=== PATIENT | male | born 1995 | race Caucasian/White ===

== ENCOUNTER 2024-09-01 22:09 | Emergency (ER) | payer BC, OTHER ==
[~2024-09-01 22:09] MED LIST: Acetaminophen/HYDROcodone 325-5 MG Tab ONE; Ondansetron 4 MG Tab.DIS ONE; Tamsulosin 0.4 MG Cap.ER ONE
[2024-09-01] MEDS ORDERED: Sodium Chloride 0.9% 10 ML Syringe FLUSH PRN (22:38)
[2024-09-01 23:03] LABS: BASOPHILS ABSOLUTE AUTO 0.06 K/uL (0.02-0.10); BASOPHILS PERCENT AUTO 0.5 % (0.0-0.5); EOSINOPHILS ABSOLUTE AUTO 0.21 K/uL (0.04-0.40); EOSINOPHILS PERCENT AUTO 1.6 % (1.0-5.0); HEMATOCRIT 44.3 % (40.0-54.0); HEMOGLOBIN 14.7 g/dL (13.0-18.0); LYMPHOCYTES ABSOLUTE AUTO 2.97 K/uL (1.50-4.00); LYMPHOCYTES PERCENT AUTO 22.7 % (20.0-40.0); MEAN CORPUSCULAR HEMOGLOBIN 26.8 pg (27.0-32.0); MEAN CORPUSCULAR HGB CONC 33.2 g/dL (31.0-35.0); MEAN CORPUSCULAR VOLUME 81 fL (76-96); MEAN PLATELET VOLUME 9.7 fL (6.0-10.0); MONOCYTES PERCENT AUTO 6.1 % (3.0-10.0); NEUTROPHILS ABSOLUTE AUTO 9.06 K/uL (2.00-7.50); NEUTROPHILS PERCENT AUTO 69.1 % (45.0-70.0); PLATELET COUNT,PLT 244 K/uL (150-400); RED BLOOD CELL COUNT 5.49 M/uL (4.50-6.50); RED CELL DISTRIBUTION WIDTH 14.2 % (11.0-16.0); WHITE BLOOD CELL COUNT,WBC 13.1 K/uL (4.0-11.0)
[2024-09-01 23:06] LABS: APPEARANCE,URINE CLEAR (CLEAR); BILIRUBIN,URINE NEGATIVE (NEGATIVE); COLOR,URINE YELLOW; GLUCOSE,URINE 250 mg/dL (NEGATIVE); KETONES,URINE TRACE mg/dL (NEGATIVE); OCCULT BLOOD,URINE NEGATIVE (NEGATIVE); PROTEIN,URINE 30 mg/dL (NEGATIVE)
[2024-09-01 23:07] LABS: LEUKOCYTE ESTERASE,URINE NEGATIVE (NEGATIVE); NITRITE,URINE NEGATIVE (NEGATIVE); RBC,URINE 0-5 /HPF; WBC,URINE NOT SEEN /HPF
[2024-09-01 23:19] LABS: A/G RATIO 0.9 (0.8-2.0); ALBUMIN 3.5 g/dL (3.4-5.0); ANION GAP 14.7 mmol/L (5.0-15.0); BILIRUBIN TOTAL 0.5 mg/dL (0.0-1.0); BUN/CREATININE RATIO 11.4 (6-25); CALCIUM 8.9 mg/dL (8.5-10.1); CARBON DIOXIDE,CO2 26.3 mmol/L (21.0-32.0); CREATININE 1.32 mg/dL (0.70-1.30); EST CRCL DRUG DOSING (CG) 93.32 mL/min; PROTEIN TOTAL,TP 7.6 g/dL (6.4-8.2)
[2024-09-01] MEDS: Sodium Chloride 0.9% 1,000 ML IV ONE (23:20)
[2024-09-02] MEDS ORDERED: Tamsulosin 0.4 MG Cap.ER ONE (00:30)
== END 2024-09-02 00:55 | disposition home or self-care (01) ==
LOC: LB.ED 22:09
DX: N13.2 Hydronephrosis with renal and ureteral calculous obstruction (principal); Z88.0 Allergy status to penicillin
CPT/HCPCS: 36415; 74176; 80053; 81001; 85025; 96360; 99284; A9270; J7030; Q0162